=== PATIENT | female | born 1980 | race Hispanic/Latino ===

== ENCOUNTER → 2017-04-01 | Outpatient (CLI) | payer OTHER ==
[~2017-04-01] MED LIST: ONDA8TAB9 PO; POLY17PO6 PO; SULF1TAB35 PO
--- NOTE | 2017-04-01 18:10 | Diagnostic Imaging Report ---
INDICATION: Abnormal uterine bleeding. FINDINGS: Uterus measures 8.2 x 5.2 x 4.4 cm. The endometrial stripe measures 4 mm. There are no myometrial masses demonstrated. The right ovary measures 2.5 x 1.3 x 1.5 cm. The left ovary measures 3.2 x 1.6 x 2 cm. No ovarian masses are seen. There is normal blood flow to both ovaries. There is no free fluid. IMPRESSION: Normal pelvic ultrasound. Dictated by: Dictated on workstation # [id number]
== END ==
LOC: RAD 13:47
PROVIDERS: ATTEND Nurse Practitioner Family
DX: N93.9 Abnormal uterine and vaginal bleeding, unspecified (principal)
CPT/HCPCS: 76830; 76856